=== PATIENT | male | born 1970 | race African-American/Black ===

== ENCOUNTER 2017-06-17 12:44 | Emergency (ER) | payer MEDICAID ==
[~2017-06-17] VITALS: Ht 172.7 cm; Wt 69.3 kg
[~2017-06-17 12:44] MED LIST: MIRT15TA4 PO; TRAZ50TA18 PO; VENL75TA PO
[2017-06-17 13:09] VITALS: BP 144/91
[2017-06-17] MEDS ORDERED: LIDOCAINE 1%, 20ML SQ ONE (14:00)
[2017-06-17] MEDS ORDERED: LIDOCAINE 1%, 10ML ONE (14:32)
== END 2017-06-17 15:16 | disposition home or self-care (01) ==
LOC: ED 15:10
DX: L02.811 Cutaneous abscess of head [any part, except face] (principal); L73.9 Follicular disorder, unspecified
CPT/HCPCS: 10060; 99283

== ENCOUNTER 2017-09-29 14:38 | Emergency (ER) | payer MEDICAID ==
[~2017-09-29] VITALS: Ht 172.7 cm; Wt 71.2 kg
[2017-09-29 14:46] VITALS: BP 127/77
== END 2017-09-29 16:05 | disposition home or self-care (01) ==
LOC: ED 15:45
DX: L02.811 Cutaneous abscess of head [any part, except face] (principal)
CPT/HCPCS: 99283

== ENCOUNTER 2018-04-28 07:48 | Emergency (ER) | payer MEDICAID ==
[~2018-04-28] VITALS: Ht 172.7 cm; Wt 61.0 kg
[~2018-04-28 07:48] MED LIST changes: +TRAZ-136 PO; -TRAZ50TA18 PO
[2018-04-28] MEDS ORDERED: KETOROLAC 30 MG/1 ML ONE (08:07)
[2018-04-28] MEDS ORDERED: DIAZEPAM 5 MG TABLET ONE (08:08)
[2018-04-28] MEDS ORDERED: DIAZEPAM 5 MG TABLET PO ONE (08:30)
[2018-04-28] MEDS ORDERED: KETOROLAC 30 MG/1 ML IM ONE (08:30)
[2018-04-28 08:46] VITALS: BP 135/90
== END 2018-04-28 08:49 | disposition home or self-care (01) ==
LOC: ED 08:40
DX: G24.3 Spasmodic torticollis (principal)
CPT/HCPCS: 72050; 96372; 99284; J1885

== ENCOUNTER 2018-06-01 07:01 | Emergency (ER) | payer MEDICAID ==
[~2018-06-01] VITALS: Ht 172.7 cm; Wt 63.3 kg
[~2018-06-01 07:01] MED LIST changes: -TRAZ-136 PO; +TRAZ50TA66 PO
[2018-06-01] MEDS ORDERED: DIAZEPAM 5 MG TABLET PO ONE (08:00)
[2018-06-01] MEDS ORDERED: DIAZEPAM 5 MG TABLET ONE (08:00)
[2018-06-01] MEDS ORDERED: KETOROLAC 30 MG/1 ML IM ONE (08:00)
[2018-06-01] MEDS ORDERED: KETOROLAC 30 MG/1 ML ONE (08:00)
[2018-06-01 09:41] VITALS: BP 92/56
== END 2018-06-01 09:42 | disposition home or self-care (01) ==
LOC: ED 09:24
DX: S13.4XXA Sprain of ligaments of cervical spine, initial encounter (principal); X58.XXXA Exposure to other specified factors, initial encounter; Y93.89 Activity, other specified; Y92.89 Other specified places as the place of occurrence of the external cause; Y99.8 Other external cause status
CPT/HCPCS: 96372; 99283; J1885

== ENCOUNTER 2018-09-16 07:38 | Emergency (ER) | payer MEDICAID ==
[~2018-09-16] VITALS: Ht 172.7 cm; Wt 66.1 kg
[2018-09-16] MEDS ORDERED: PROPARACAINE OPHTH 0.5%, 15ML ONE (07:49)
[2018-09-16] MEDS ORDERED: FLUORESCEIN OPHTHALMIC 1 MG STRIP ONE (07:49)
[2018-09-16 08:02] VITALS: BP 146/85
--- NOTE | 2018-09-16 08:23 | NUR ---
PT PRESENTS TO ED WITH FLU LIKE SXS, SOME N/V NO DIARRHEA, PT STATES HE "FEELS TERRIBLE", PT WAS HERE A FEW DAYS AGO SENT HOME WITH RX FOR BENZONATATE, VENTOLIN INHALER, TRIMINCALONE NASAL SPRAY AND TESSLON PERLS. PT PLACED ON MONITOR, VSS
[2018-09-16] MEDS ORDERED: ONDANSETRON ODT 4 MG PO ONE (08:30)
[2018-09-16] MEDS ORDERED: ONDANSETRON ODT 4 MG ONE (08:32)
--- NOTE | 2018-09-16 09:15 | NUR ---
Patient given discharge instructions and they have confirmed that they understand the instructions. Patient ambulatory with steady gait. Pt left with all personal belongings.
== END 2018-09-16 09:18 | disposition home or self-care (01) ==
LOC: ED 09:12
DX: B34.9 Viral infection, unspecified (principal); F41.1 Generalized anxiety disorder
CPT/HCPCS: 71046; 99283; Q0162

== ENCOUNTER 2018-09-21 14:05 | Inpatient (IN) | payer MEDICAID ==
[~2018-09-21] VITALS: Ht 174 cm; Wt 64.0 kg
--- NOTE | 2018-09-21 14:16 | NUR ---
BIB EMS +SYNCOPAL EPISODE. FELL BACKWARDS ON CEMENT +LOC LASTING APPROX 10SEC. PARTIAL THICHNESS LACERATION TO RIGHT LATERAL PARIETAL AREA
[2018-09-21] MEDS ORDERED: DIPH,PERTUSS(ACELL),TET VAC/PF 0.5 ML IM-VACC ONE ×2 (14:30→14:58)
[2018-09-21 14:59] LABS: MEAN CORPUSCULAR HEMOGLOBIN 29.6 pg (27.5-34.5); MEAN CORPUSCULAR HGB CONC 33.6 g/dL (33.2-36.2); MEAN CORPUSCULAR VOLUME 88.1 fL (81-97); MEAN PLATELET VOLUME 9.1 fL (7.4-10.4); PLATELET COUNT 433 x10^3/uL (130-400); RED BLOOD COUNT 4.92 x10^6/uL (4.38-5.82); RED CELL DISTRIBUTION WIDTH 13.4 % (9.4-14.8)
--- NOTE | 2018-09-21 15:03 | NUR ---
[facility] RPT TO FRANKI MASON
[2018-09-21 15:09] LABS: ALANINE AMINOTRANSFERASE 25 U/L (12-78); ALBUMIN 4.4 g/dL (3.4-5.0); ANION GAP 11 mmol/L (5-15); CALCIUM 9.5 mg/dL (8.5-10.1); CHLORIDE 102 mmol/L (98-107); CREATININE 2.32 mg/dL (0.7-1.3)
--- NOTE | 2018-09-21 15:09 | NUR ---
[facility] RPT TO FRANKI MASON
[2018-09-21 15:13] LABS: ALKALINE PHOSPHATASE 104 U/L (45-117); BILIRUBIN,TOTAL 1.1 mg/dL (0.2-1.0); TOTAL PROTEIN 8.7 g/dL (6.4-8.2); TROPONIN I < 0.015 ng/mL (0.000-0.045)
[2018-09-21] MEDS ORDERED: SODIUM CHLORIDE 0.9% 1,000ML IVBOLUS ONE ×2 (15:30→17:30)
[2018-09-21] MEDS ORDERED: SODIUM CHLORIDE FLUSH 10ML SYR IVF ONE (15:30)
--- NOTE | 2018-09-21 15:37 | NUR ---
PT TO CT VIA [facility].
[2018-09-21 15:47] LABS: MD YES
[2018-09-21 15:48] LABS: BAND#(MANUAL) 0.31 x10^3/uL; BANDS%(MANUAL) 2 % (0-7); LYMPHS% (MANUAL) 7 % (22-44); METAMYELOCYTES# (MANUAL) 0.16 x10^3/uL (0-0); METAMYELOCYTES% (MANUAL) 1 % (0-1); MONOS#(MANUAL) 0.63 x10^3/uL (0.3-2.7); MONOS% (MANUAL) 4 % (2-9); SEGS% (MANUAL) 86 % (42-75)
[2018-09-21 15:49] LABS: <PLATELET ESTIMATE> INCREASED; <RBC MORPHOLOGY> NORMAL; LARGE PLATELETS 1+
--- NOTE | 2018-09-21 16:43 | NUR ---
HEAD LACERATION IRRIGATED AND DRESSED WITH DERMABOND AND STERI STRIPS BY POLE FRAMER MACHINE. ORTHOSTATIC VS DONE, SEE CHART, NO SIGNIFICANT CHANGE NOTED.
--- NOTE | 2018-09-21 17:19 | NUR ---
ERP AT NOW.
[2018-09-21] MEDS ORDERED: SODIUM CHLORIDE FLUSH 10ML SYR IVF PRN (18:00)
[2018-09-21] MEDS ORDERED: hydrALAzine 20 MG/ML, 1ML IVPush PRN (18:00)
[2018-09-21] MEDS ORDERED: LIDODERM 5% PATCH TD PRN (18:00)
[2018-09-21] MEDS ORDERED: ACETAMINOPHEN 325 MG TABLET PO PRN (18:00)
[2018-09-21] MEDS ORDERED: ONDANSETRON 2MG/ML, 2ML IVPush PRN (18:00)
[2018-09-21] MEDS ORDERED: LABETALOL 5 MG/ML SYRINGE IVPush PRN (18:00)
--- NOTE | 2018-09-21 18:49 | NUR ---
PT AMBULATED TO BR WITHOUT DIFFICULTY.
[2018-09-21] MEDS ORDERED: BENZ-17 PO (19:34)
[2018-09-21] MEDS ORDERED: ALBU18HF INH (19:34)
[2018-09-21 19:38] VITALS: BP 109/70
[2018-09-21 19:40] VITALS: BP 105/67
[2018-09-21 19:44] VITALS: BP 110/72
[2018-09-21] MEDS: AMOXICILLIN/CLAV 875-125MG TABLET PO SCH (21:38)
[2018-09-21] MEDS: HEPARIN 5,000 UNITS/ML, 1ML SQ SCH (21:38)
[2018-09-21] MEDS: SODIUM CHLORIDE 0.9% 1,000 ML IV SCH (21:38)
[2018-09-21] MEDS: GUAIFENESIN/COD200MG-20MG/10ML LIQUID PO PRN (22:28)
[2018-09-22 00:14] VITALS: BP 100/62
[2018-09-22 00:17] VITALS: BP 110/69
[2018-09-22 00:20] VITALS: BP 105/67
[2018-09-22] MEDS: SODIUM CHLORIDE 0.9% 1,000 ML IV SCH ×2 (05:28→13:15)
[2018-09-22] MEDS: HEPARIN 5,000 UNITS/ML, 1ML SQ SCH ×2 (05:29→15:23)
[2018-09-22 06:37] VITALS: BP 97/62
[2018-09-22] MEDS: GUAIFENESIN/COD200MG-20MG/10ML LIQUID PO PRN (07:21)
[2018-09-22 09:25] VITALS: BP_SYST 114; BP_SYST 126; BP_SYST 128; BP_DIAS 72; BP_DIAS 77; BP_DIAS 81
[2018-09-22] MEDS: AMOXICILLIN/CLAV 875-125MG TABLET PO SCH (09:32)
[2018-09-22 09:47] LABS: ANION GAP 7 mmol/L (5-15); BASOPHILS # (AUTO) 0.03 x10^3/uL (0-0.1); BASOPHILS % (AUTO) 0 % (0-1); CALCIUM 8.4 mg/dL (8.5-10.1); CHLORIDE 110 mmol/L (98-107); CREATININE 0.88 mg/dL (0.7-1.3); EOSINOPHILS # (AUTO) 0.18 x10^3/uL (0-0.4); EOSINOPHILS % (AUTO) 2 % (1-7); LYMPHOCYTES % (AUTO) 16 % (22-44); MD NO; MEAN CORPUSCULAR HEMOGLOBIN 29.1 pg (27.5-34.5); MEAN CORPUSCULAR HGB CONC 33.3 g/dL (33.2-36.2); MEAN CORPUSCULAR VOLUME 87.2 fL (81-97); MEAN PLATELET VOLUME 8.8 fL (7.4-10.4); MONOCYTES # (AUTO) 0.89 x10^3/uL (0.2-0.8); MONOCYTES % (AUTO) 9 % (2-9); NEUTROPHILS # (AUTO) 7.56 x10^3/uL (1.8-6.8); NEUTROPHILS % (AUTO) 73 % (42-75); PLATELET COUNT 346 x10^3/uL (130-400); RED BLOOD COUNT 3.98 x10^6/uL (4.38-5.82); RED CELL DISTRIBUTION WIDTH 13.7 % (9.4-14.8)
[2018-09-22] MEDS ORDERED: BENZONATATE 100 MG CAPSULE PO SCH (11:30)
[2018-09-22 13:33] VITALS: BP_SYST 107; BP_SYST 119; BP_SYST 129; BP_DIAS 71; BP_DIAS 74; BP_DIAS 82
[2018-09-22] MEDS ORDERED: BENZ-17 PO (15:55)
[2018-09-22] MEDS ORDERED: GUAI600T80 PO (15:55)
[2018-09-22] MEDS ORDERED: AMOX1TAB12 PO (15:55)
== END 2018-09-22 18:49 | disposition home or self-care (01) | DRG 73 ==
LOC: ED 15:13 → EDIP 17:33 → 4EST 19:28
PROVIDERS: ADMIT Internal Medicine; ATTEND Internal Medicine
PROC: 0HQ0XZZ Repair Scalp Skin, External Approach (ICD-10-PCS; principal; 2018-09-21)
DX: G90.9 Disorder of the autonomic nervous system, unspecified (principal); N17.0 Acute kidney failure with tubular necrosis; F12.90 Cannabis use, unspecified, uncomplicated; F15.90 Other stimulant use, unspecified, uncomplicated; F41.1 Generalized anxiety disorder; F39 Unspecified mood [affective] disorder; I95.9 Hypotension, unspecified; F43.10 Post-traumatic stress disorder, unspecified; I10 Essential (primary) hypertension; J01.00 Acute maxillary sinusitis, unspecified; S01.01XA Laceration without foreign body of scalp, initial encounter; X58.XXXA Exposure to other specified factors, initial encounter; Y93.89 Activity, other specified; Y92.89 Other specified places as the place of occurrence of the external cause; Y99.8 Other external cause status; Z83.3 Family history of diabetes mellitus
CPT/HCPCS: 36415; 70450; 71045; 80048; 80053; 84484; 85025; 90471; 90715; 93005; 93306; 93880; 96360; 99285; G0378; J1644; J7030

== ENCOUNTER 2018-12-18 14:54 | Emergency (ER) | payer MEDICAID ==
[~2018-12-18] VITALS: Ht 175.3 cm; Wt 59.4 kg
[~2018-12-18 14:54] MED LIST changes: +ALBU18HF INH; +AMOX1TAB12 PO; +BENZ-17 PO; +GUAI600T80 PO
[2018-12-18] MEDS ORDERED: LIDOCAINE-MPF 1%, 5ML ONE (16:32)
[2018-12-18] MEDS ORDERED: LIDOCAINE-MPF 1%, 5ML INFIL ONE (17:00)
--- NOTE | 2018-12-18 17:13 | NUR ---
alumifoam splint applied to finger
[2018-12-18 17:16] VITALS: BP 136/62
== END 2018-12-18 17:19 | disposition home or self-care (01) ==
LOC: ED 17:06
DX: S62.632B Displaced fracture of distal phalanx of right middle finger, initial encounter for open fracture (principal); S90.121A Contusion of right lesser toe(s) without damage to nail, initial encounter; F41.1 Generalized anxiety disorder; F32.9 Major depressive disorder, single episode, unspecified; W20.8XXA Other cause of strike by thrown, projected or falling object, initial encounter; Y93.89 Activity, other specified; Y92.69 Other specified industrial and construction area as the place of occurrence of the external cause; Y99.0 Civilian activity done for income or pay
CPT/HCPCS: 11740; 99283

== ENCOUNTER 2019-01-14 22:57 | Emergency (ER) | payer MEDICAID ==
[~2019-01-14] VITALS: Ht 174 cm; Wt 57.8 kg
[2019-01-14 23:02] VITALS: BP 109/74
== END 2019-01-14 23:54 | disposition home or self-care (01) ==
LOC: ED 23:26
DX: S61.302A Unspecified open wound of right middle finger with damage to nail, initial encounter (principal); S60.131A Contusion of right middle finger with damage to nail, initial encounter; F41.1 Generalized anxiety disorder; F32.9 Major depressive disorder, single episode, unspecified; W23.1XXA Caught, crushed, jammed, or pinched between stationary objects, initial encounter; Y93.89 Activity, other specified; Y92.009 Unspecified place in unspecified non-institutional (private) residence as the place of occurrence of the external cause; Y99.8 Other external cause status
CPT/HCPCS: 99281